=== PATIENT | male | born 1945 | race Caucasian/White ===

== ENCOUNTER 2020-06-01 02:38 | Observation (INO) | payer MEDICARE, BC ==
[2020-06-01 03:23] LABS: CHLORIDE,CL 93 mEq/L (98-106); SODIUM,NA 128 mEq/L (136-145)
--- NOTE | 2020-06-01 03:25 | EDM.PDOC ---
ED HPI GENERAL MEDICAL PROBLEM - General Chief Complaint: Respiratory Problem Stated Complaint: respiratory Time Seen by Provider: 06/01/20 03:05 Source of Information: Reports: Patient, Family History Limitations: Reports: Intoxication - History of Present Illness INITIAL COMMENTS - FREE TEXT/NARRATIVE: Prabhjot is a 74 yo male who presents to the ED with c/o fall and difficulty b reathing. Apparently [place]. He is intoxicated. At bar close, was helping take the garbage out. Reports he fell over and could not get back up. Bystander reports he was struggling to breathe and was unable to get up. Was eventually able to be assisted up. He reports prior to this he had been feeling fine. He denies any shortness of breath or cough. Does have rattle in chest, which reports he did not have earlier today. Has felt wheezy this evening, but didn't really notice it until he fell and someone pointed it out. He denies any fever, dizziness, chest pain, shortness of breath, cough, sinus congestion. Reports he has had both of his Covid vaccinations. Onset: Today, Sudden Associated Symptoms: Denies: Confusion, Chest Pain, Cough, cough w sputum, Diaphoresis, Fever/Chills, Headaches, Loss of Appetite, Malaise, Nausea/Vomiting, Rash, Seizure, Shortness of Breath, Syncope, Weakness - Related Data Allergies Allergy/AdvReac Type Severity Reaction Status Date / Time No Known Allergies Allergy Verified 06/01/20 02:39 Home Meds: Home Meds Aspirin [Halfprin] 81 mg PO DAILY 01/18/14 [History] Pantoprazole [ProTONIX] 40 mg PO DAILY 01/18/14 [History] Albuterol/Ipratropium [DuoNeb 3.0-0.5 MG/3 ML] 3 ml NEB QID PRN #30 neb 06/01/20 [Rx] Cholecalciferol (Vitamin D3) [Vitamin D3] 5,000 unit PO DAILY 06/01/20 [History] Cyanocobalamin (Vitamin B-12) [Vitamin B-12] 1,000 mcg PO DAILY 06/01/20 [History] Fenofibrate 160 mg PO DAILY 06/01/20 [History] Magnesium Oxide [Magnesium] 400 mg PO DAILY 06/01/20 [History] Metoprolol Succinate [Toprol XL 100mg] 100 mg PO DAILY 06/01/20 [History] Ubidecarenone [Coq-10] 100 mg PO DAILY 06/01/20 [History] amLODIPine [Norvasc] 5 mg PO DAILY 06/01/20 [History] levoFLOXacin [Levaquin] 500 mg PO DAILY 6 Days #6 tab 06/01/20 [Rx] predniSONE [Prednisone] 20 mg PO DAILY 6 Days #9 tablet 06/01/20 [Rx] Past Medical History Cardiovascular History: Reports: High Cholesterol, Hypertension Gastrointestinal History: Reports: GERD Endocrine/Metabolic History: Reports: Other (See Below) Other Endocrine/Metabolic History: reports being pre-diabetic - Past Surgical History Cardiovascular Surgical History: Reports: None GI Surgical History: Reports: None Endocrine Surgical History: Reports: None Social & Family History - Tobacco Use Tobacco Use Status *Q: Never Tobacco User - Alcohol Use Alcohol Use History: Yes Alcohol Use Frequency: Socially - Recreational Drug Use Recreational Drug Use: No - Living Situation & Occupation Living situation: Reports: Occupation: Employed (Self, [employer]orer) ED ROS GENERAL - Review of Systems Review Of Systems: Comprehensive ROS is negative, except as noted in HPI. ED EXAM, GENERAL - Physical Exam Exam: See Below Exam Limited By: Intoxication General Appearance: Alert, WD/WN, No Apparent Distress Eye Exam: Bilateral Eye: EOMI, Normal Fundi, Normal Inspection, PERRL Ears: Normal External Exam, Normal Canal, Hearing Grossly Normal, Normal TMs Nose: Normal Inspection, Normal Mucosa, No Blood Throat/Mouth: Normal Inspection, Normal Lips, Normal Teeth, Normal Gums, Normal Oropharynx, Normal Voice, No Airway Compromise Head: Atraumatic, Normocephalic Neck: Normal Inspection, Supple, Non-Tender, Full Range of Motion Respiratory/Chest: No Respiratory Distress, No Accessory Muscle Use, Chest Non- Tender, Rhonchi (throughout), Wheezing (expiratory wheezes throughout). No: Accessory Muscle Use, Retractions, Splinting Cardiovascular: Normal Peripheral Pulses, Regular Rate, Rhythm, No Edema, No Gallop, No JVD, No Murmur, No Rub GI/Abdominal: Normal Bowel Sounds, Soft, Non-Tender, No Organomegaly, No Distention, No Abnormal Bruit, No Mass Back Exam: Normal Inspection, Full Range of Motion, NT Extremities: Normal Inspection, Normal Range of Motion, Non-Tender, Normal Capillary Refill, No Pedal Edema Neurological: Alert, Oriented, CN II-XII Intact, Normal Cognition, Normal Gait, Normal Reflexes, No Motor/Sensory Deficits Psychiatric: Normal Affect, Normal Mood Skin Exam: Warm, Dry, Other (small abrasions to bilateral forehead, both < 2 mm in size) Lymphatic: No Adenopathy Course - Vital Signs Last Recorded V/S: Last Vital Signs Temp 98.1 F 06/01/20 07:41 Pulse 67 06/01/20 07:41 Resp 20 06/01/20 07:41 BP 121/74 06/01/20 07:41 Pulse Ox 94 L 06/01/20 07:41 - Orders/Labs/Meds Orders: Active Orders 24 hr Category Date Time Status CXR [Chest 2V] [CR] Stat Exams 06/01/20 02:49 Taken Labs: Laboratory Tests 06/01/20 06/01/20 Range/Units 02:50 03:12 WBC 6.3 (5.0-10.0) 10^3/uL RBC 5.91 (4.50-6.00) 10^6/uL Hgb 16.4 (14.0-18.0) g/dL Hct 48.4 (40.0-54.0) % MCV 81.9 L (82.0-94.0) fL MCH 27.7 (27.0-32.0) pg MCHC 33.9 (33.0-38.0) g/dL RDW Coeff of Juan Ramon 14.0 (11.0-15.0) % Plt Count 245 (150-400) 10^3/uL Neut % (Auto) 33.3 L (35-85) % Lymph % (Auto) 53.2 (10-55) % [place] % (Auto) 8.6 (0-16) % Eos % (Auto) 4.4 (0-5) % Baso % (Auto) 0.5 (0-3) % Neut # (Auto) 2.10 (1.80-7.00) 10^3/uL Lymph # (Auto) 3.36 (1.00-4.80) 10^3/uL [place] # (Auto) 0.54 (0.00-0.80) 10^3/uL Eos # (Auto) 0.28 (0.00-0.45) 10^3/uL Baso # (Auto) 0.03 10^3/uL Sodium 128 L (136-145) mEq/L Potassium 3.9 (3.5-5.0) mEq/L Chloride 93 L (98-106) mEq/L Carbon Dioxide 25 (21-32) mmol/L BUN 12 (7-18) mg/dL Creatinine 1.2 (0.7-1.3) mg/dL Est Cr Clr Drug Dosing 50.21 mL/min Estimated GFR (MDRD) 60 (>=60) mL/min Glucose 161 H (75-99) mg/dL Calcium 9.5 (8.4-10.1) mg/dL Total Bilirubin 0.5 (0.0-1.0) mg/dL AST 17 (15-37) U/L ALT 21 (12-78) U/L Alkaline Phosphatase 65 (46-116) U/L C-Reactive Protein < 0.2 L (0.2-0.8) mg/dL Total Protein 7.6 (6.4-8.2) g/dL Albumin 3.7 (3.4-5.0) g/dL Meds: Medications Discontinued Medications Generic Name Dose Route Start Last Admin Trade Name Freq PRN Reason Stop Dose Admin Acetaminophen 650 mg 06/01/20 04:20 Acetaminophen 325 Mg Tab PO Q4H PRN Pain (Mild 1-3)/fever Albuterol/Ipratropium 3 ml 06/01/20 04:20 06/01/20 07:27 Albuterol/Ipratropium 3.0-0.5 Mg/3 Ml Neb Soln NEB 3 ml QID EVA Administration Albuterol/Ipratropium 3 ml 06/01/20 04:22 06/01/20 04:37 Albuterol/Ipratropium 3.0-0.5 Mg/3 Ml Neb Soln NEB 06/01/20 04:23 3 ml ONETIME ONE Administration Aspirin 81 mg 06/01/20 08:00 06/01/20 07:27 Aspirin 81 Mg Tab.Ec PO 81 mg DAILY EVA Administration Enoxaparin Sodium 40 mg 06/01/20 09:00 06/01/20 09:39 Enoxaparin 40 Mg/0.4 Ml Syringe SUBCUT 40 mg Q24H EVA Administration Fenofibrate 160 mg 06/01/20 08:00 Fenofibrate 160 Mg Tab PO DAILY EVA Sodium Chloride 1,000 mls @ 125 mls/hr 06/01/20 04:20 06/01/20 04:41 Normal Saline IV 125 mls/hr ASDIRECTED EVA Administration Levofloxacin/Dextrose 500 mg/ 100 mls @ 100 mls/hr 06/01/20 04:00 06/01/20 04:46 Premix IV 100 mls/hr Q24H EVA Administration Methylprednisolone Sodium Succinate 125 mg 06/01/20 04:20 06/01/20 04:39 Methylprednisolone Sodium Succinate 125 Mg/2 Ml Sdv IVPUSH 125 mg Q24H EVA Administration Non-Formulary Medication 5 mg 06/01/20 08:00 Amlodipine [Norvasc] PO DAILY [facility] Non-Formulary Medication 1,000 mcg 06/01/20 08:00 Cyanocobalamin (Vitamin B-12) [Vitamin B-12] PO DAILY [facility] Non-Formulary Medication 400 mg 06/01/20 08:00 Magnesium Oxide [Magnesium] PO DAILY [facility] Ondansetron HCl 4 mg 06/01/20 04:20 Ondansetron 4 Mg/2 Ml Sdv IV Q6H PRN Nausea/Vomiting Departure - Departure Time of Disposition: 04:20 Disposition: Refer to Observation Condition: Fair Clinical Impression: Pneumonitis, Hyponatremia - Discharge Information *PRESCRIPTION DRUG MONITORING PROGRAM REVIEWED*: Not Applicable *COPY OF PRESCRIPTION DRUG MONITORING REPORT IN PATIENT CURTIS: Not Applicable Sepsis Event Note (ED) - Evaluation Sepsis Screening Result: No Definite Risk - Focused Exam Vital Signs: Vital Signs Temp Pulse Resp BP Pulse Ox 06/01/20 03:12 93 L 06/01/20 02:40 96.4 F L 60 16 110/63 93 L - Problem List & Annotations (1) Pneumonitis SNOMED Code(s): 389765503 Code(s): J18.9 - PNEUMONIA, UNSPECIFIED ORGANISM Status: Acute (2) Hyponatremia SNOMED Code(s): 46986896 Code(s): E87.1 - HYPO-OSMOLALITY AND HYPONATREMIA Status: Acute - Problem List Review Problem List Initiated/Reviewed/Updated: Yes - My Orders Last 24 Hours: My Active Orders 06/01/20 02:49 CXR [Chest 2V] [CR] Stat - Assessment/Plan Admission H&P: Please use this note as an admission H&P Last 24 Hours: My Active Orders 06/01/20 02:49 CXR [Chest 2V] [CR] Stat Assessment:: Pneumonitis Hyponatremia Plan: Patient with adventitious lung sounds throughout. O2 sat 93% on RA. CXR appears to have atypical pneumonitis. Declined covid testing. Labs all stable except Na 128. Will admit to observation with cardiac monitoring. Will start IVF throughout the night due to low sodium and dehydration. Patient has been drinking ETOH this evening and appears dehydrated. Start nebs, IV antibiotics and steroids. Recheck labs in am. Patient transferred to floor in satisfactory condition.
[2020-06-01] MEDS ORDERED: Levofloxacin/Dextrose 5%-Water 500 MG in Premix Bag 1 BAG IV SCH (04:00)
[2020-06-01] MEDS ORDERED: Sodium Chloride 0.9% 1,000 ML IV SCH (04:20)
[2020-06-01] MEDS ORDERED: Ondansetron 4 MG/2 ML SDV IV PRN (04:20)
[2020-06-01] MEDS ORDERED: Acetaminophen 325 MG Tab PO PRN (04:20)
[2020-06-01] MEDS ORDERED: methylPREDNISolone Sodium Succinate 125 MG/2 ML SDV IVPUSH SCH (04:20)
[2020-06-01] MEDS ORDERED: Albuterol/Ipratropium 3.0-0.5 MG/3 ML Neb Soln NEB ONE (04:22)
[2020-06-01] MEDS: Albuterol/Ipratropium 3.0-0.5 MG/3 ML Neb Soln NEB SCH ×2 (04:38→07:27)
[2020-06-01] MEDS ORDERED: Fenofibrate 160 MG Tab PO SCH (08:00)
[2020-06-01] MEDS ORDERED: Non-Formulary Medication 1 Each (Magnesium Oxide [Magnesium] 400 MG Tablet) PO SCH (08:00)
[2020-06-01] MEDS ORDERED: Non-Formulary Medication 1 Each (Amlodipine [Norvasc] 5 MG Tablet) PO SCH (08:00)
[2020-06-01] MEDS ORDERED: Aspirin 81 MG Tab.EC PO SCH (08:00)
[2020-06-01] MEDS ORDERED: Enoxaparin 40 MG/0.4 ML Syringe SUBCUT SCH (09:00)
[2020-06-01 09:24] LABS: CHLORIDE,CL 96 mEq/L (98-106); SODIUM,NA 131 mEq/L (136-145)
[2020-06-01 09:53] LABS: CORONAVIRUS COVID-19 NAA NEGATIVE (NEGATIVE)
--- NOTE | 2020-06-01 10:17 | PCM.DCSUM1 ---
Discharge Summary - Hospital Course Free Text/Narrative:: Prabhjot is a pleasant 74 year old male who was admitted last night from the ED for pneumonitis. He had reportedly fallen down, while intoxicated, and was too weak to get up. Bystanders were worried about his breathing as there was audible wheezing and rhonchi. He presented to the ED. O2 sats upon arrival 93%. Patient without any known respiratory issues. Lab work was significant for Na of 128. Chest xray revealed interstitial edema vs. atypical pneumonitis. Patient was negative for Covid and influenza. He was admitted, started on antibiotics, steroids, and IVF. On day of discharge, patient had much improvement in breathing. Lung sounds much improved. Na improved to 131 after 1 L IVF. Patient reported he was feeling well. O2 sat 94% on RA. He was up ambulating without difficulty. He did not verbalize any concerns. He will be discharged on on remaining course of Levaquin and prednisone. Will also send home Duonebs for patient to use as needed. He is advised to follow up with PCP next week for recheck. Will get repeat lab work at that time as well. - Discharge Data Discharge Date: 06/01/20 Discharge Disposition: Home, Self-Care 01 Condition: Good - Referral to Home Health Primary Care Physician: Kota Maldonado PA-C - Discharge Diagnosis/Problem(s) (1) Pneumonitis SNOMED Code(s): 389123110 ICD Code: J18.9 - PNEUMONIA, UNSPECIFIED ORGANISM Status: Acute (2) Hyponatremia SNOMED Code(s): 28981116 ICD Code: E87.1 - HYPO-OSMOLALITY AND HYPONATREMIA Status: Acute - Patient Instructions Diet: Usual Diet as Tolerated Activity: As Tolerated, Cough & Deep Breathe Notify Provider of: Fever, Increased Pain - Discharge Plan *PRESCRIPTION DRUG MONITORING PROGRAM REVIEWED*: Not Applicable *COPY OF PRESCRIPTION DRUG MONITORING REPORT IN PATIENT CURTIS: Not Applicable Prescriptions/Med Rec: Albuterol/Ipratropium [DuoNeb 3.0-0.5 MG/3 ML] 3 ml NEB QID PRN #30 neb PRN Reason: pneumonia levoFLOXacin [Levaquin] 500 mg PO DAILY 6 Days #6 tab predniSONE [Prednisone] 20 mg PO DAILY 6 Days #9 tablet Home Medications: Home Meds Aspirin [Halfprin] 81 mg PO DAILY 01/18/14 [History] Pantoprazole [ProTONIX] 40 mg PO DAILY 01/18/14 [History] Albuterol/Ipratropium [DuoNeb 3.0-0.5 MG/3 ML] 3 ml NEB QID PRN #30 neb 06/01/20 [Rx] Cholecalciferol (Vitamin D3) [Vitamin D3] 5,000 unit PO DAILY 06/01/20 [History] Cyanocobalamin (Vitamin B-12) [Vitamin B-12] 1,000 mcg PO DAILY 06/01/20 [History] Fenofibrate 160 mg PO DAILY 06/01/20 [History] Magnesium Oxide [Magnesium] 400 mg PO DAILY 06/01/20 [History] Metoprolol Succinate [Toprol XL 100mg] 100 mg PO DAILY 06/01/20 [History] Ubidecarenone [Coq-10] 100 mg PO DAILY 06/01/20 [History] amLODIPine [Norvasc] 5 mg PO DAILY 06/01/20 [History] levoFLOXacin [Levaquin] 500 mg PO DAILY 6 Days #6 tab 06/01/20 [Rx] predniSONE [Prednisone] 20 mg PO DAILY 6 Days #9 tablet 06/01/20 [Rx] Oxygen Therapy Mode: Room Air Patient Handouts: Pneumonitis Forms: ED Department Discharge Referrals: Kota Maldonado PA-C [Primary Care Provider] - - Discharge Summary/Plan Comment DC Time >30 min.: No - General Info Date of Service: 06/01/20 Admission Dx/Problem (Free Text: Pneumonitis Hyponatremia Subjective Update: Patient reports he is feeling well this morning. Does not have any complaints. He is anxious to go home. Functional Status: Reports: Pain Controlled, Tolerating Diet, Ambulating, Urinating. Denies: New Symptoms - Review of Systems General: Reports: No Symptoms HEENT: Reports: No Symptoms Pulmonary: Reports: Cough. Denies: Shortness of Breath, Pleuritic Chest Pain, Sputum, Hemoptysis, Wheezing Cardiovascular: Reports: No Symptoms Gastrointestinal: Reports: No Symptoms Genitourinary: Reports: No Symptoms Musculoskeletal: Reports: No Symptoms Skin: Reports: No Symptoms Neurological: Reports: No Symptoms Psychiatric: Reports: No Symptoms - Patient Data Vitals - Most Recent: Last Vital Signs Temp 98.1 F 06/01/20 07:41 Pulse 67 06/01/20 07:41 Resp 20 06/01/20 07:41 BP 121/74 06/01/20 07:41 Pulse Ox 94 L 06/01/20 07:41 Weight - Most Recent: 224 lb Lab Results - Last 24 hrs: Laboratory Results - last 24 hr 06/01/20 06/01/20 06/01/20 Range/Units 02:50 03:12 09:11 WBC 6.3 2.8 L (5.0-10.0) 10^3/uL RBC 5.91 5.62 (4.50-6.00) 10^6/uL Hgb 16.4 15.5 (14.0-18.0) g/dL Hct 48.4 45.5 (40.0-54.0) % MCV 81.9 L 81.0 L (82.0-94.0) fL MCH 27.7 27.6 (27.0-32.0) pg MCHC 33.9 34.1 (33.0-38.0) g/dL RDW Coeff of Juan Ramon 14.0 13.7 (11.0-15.0) % Plt Count 245 211 (150-400) 10^3/uL Neut % (Auto) 33.3 L 75.3 (35-85) % Lymph % (Auto) 53.2 22.9 (10-55) % [place] % (Auto) 8.6 1.4 (0-16) % Eos % (Auto) 4.4 0 (0-5) % Baso % (Auto) 0.5 0.4 (0-3) % Neut # (Auto) 2.10 2.10 (1.80-7.00) 10^3/uL Lymph # (Auto) 3.36 0.64 L (1.00-4.80) 10^3/uL [place] # (Auto) 0.54 0.04 (0.00-0.80) 10^3/uL Eos # (Auto) 0.28 0.00 (0.00-0.45) 10^3/uL Baso # (Auto) 0.03 0.01 10^3/uL Sodium 128 L (136-145) mEq/L Potassium 3.9 (3.5-5.0) mEq/L Chloride 93 L (98-106) mEq/L Carbon Dioxide 25 (21-32) mmol/L BUN 12 (7-18) mg/dL Creatinine 1.2 (0.7-1.3) mg/dL Est Cr Clr Drug Dosing 50.21 mL/min Estimated GFR (MDRD) 60 (>=60) mL/min Glucose 161 H (75-99) mg/dL Calcium 9.5 (8.4-10.1) mg/dL Magnesium (1.8-2.4) mg/dL Total Bilirubin 0.5 (0.0-1.0) mg/dL AST 17 (15-37) U/L ALT 21 (12-78) U/L Alkaline Phosphatase 65 (46-116) U/L C-Reactive Protein < 0.2 L (0.2-0.8) mg/dL NT-Pro-B Natriuret Pep (0-1000) pg/mL Total Protein 7.6 (6.4-8.2) g/dL Albumin 3.7 (3.4-5.0) g/dL Influenza Type A RNA (NEGATIVE) Influenza Type B RNA (NEGATIVE) SARS-CoV-2 RNA ([place]) (NEGATIVE) 06/01/20 06/01/20 06/01/20 Range/Units 09:11 09:11 09:11 WBC (5.0-10.0) 10^3/uL RBC (4.50-6.00) 10^6/uL Hgb (14.0-18.0) g/dL Hct (40.0-54.0) % MCV (82.0-94.0) fL MCH (27.0-32.0) pg MCHC (33.0-38.0) g/dL RDW Coeff of Juan Ramon (11.0-15.0) % Plt Count (150-400) 10^3/uL Neut % (Auto) (35-85) % Lymph % (Auto) (10-55) % [place] % (Auto) (0-16) % Eos % (Auto) (0-5) % Baso % (Auto) (0-3) % Neut # (Auto) (1.80-7.00) 10^3/uL Lymph # (Auto) (1.00-4.80) 10^3/uL [place] # (Auto) (0.00-0.80) 10^3/uL Eos # (Auto) (0.00-0.45) 10^3/uL Baso # (Auto) 10^3/uL Sodium 131 L (136-145) mEq/L Potassium 3.9 (3.5-5.0) mEq/L Chloride 96 L (98-106) mEq/L Carbon Dioxide 23 (21-32) mmol/L BUN 12 (7-18) mg/dL Creatinine 1.1 (0.7-1.3) mg/dL Est Cr Clr Drug Dosing 54.78 mL/min Estimated GFR (MDRD) > 60 (>=60) mL/min Glucose 206 H D (75-99) mg/dL Calcium 9.4 (8.4-10.1) mg/dL Magnesium 1.8 (1.8-2.4) mg/dL Total Bilirubin (0.0-1.0) mg/dL AST (15-37) U/L ALT (12-78) U/L Alkaline Phosphatase (46-116) U/L C-Reactive Protein < 0.2 L (0.2-0.8) mg/dL NT-Pro-B Natriuret Pep 357 (0-1000) pg/mL Total Protein (6.4-8.2) g/dL Albumin (3.4-5.0) g/dL Influenza Type A RNA Negative (NEGATIVE) Influenza Type B RNA Negative (NEGATIVE) SARS-CoV-2 RNA ([place]) Negative (NEGATIVE) Med Orders - Current: Current Medications Acetaminophen (Acetaminophen 325 Mg Tab) 650 mg PO Q4H PRN PRN Reason: Pain (Mild 1-3)/fever Albuterol/Ipratropium (Albuterol/Ipratropium 3.0-0.5 Mg/3 Ml Neb Soln) 3 ml NEB QID [facility] Last Admin: 06/01/20 07:27 Dose: 3 ml Documented by: Aspirin (Aspirin 81 Mg Tab.Ec) 81 mg PO DAILY [facility] Last Admin: 06/01/20 07:27 Dose: 81 mg Documented by: Enoxaparin Sodium (Enoxaparin 40 Mg/0.4 Ml Syringe) 40 mg SUBCUT Q24H [facility] Last Admin: 06/01/20 09:39 Dose: 40 mg Documented by: Fenofibrate (Fenofibrate 160 Mg Tab) 160 mg PO DAILY [facility] Sodium Chloride (Normal Saline) 1,000 mls @ 125 mls/hr IV ASDIRECTED [facility] Last Admin: 06/01/20 04:41 Dose: 125 mls/hr Documented by: Levofloxacin/Dextrose 500 mg/ (Premix) 100 mls @ 100 mls/hr IV Q24H [facility] Last Admin: 06/01/20 04:46 Dose: 100 mls/hr Documented by: Methylprednisolone Sodium Succinate (Methylprednisolone Sodium Succinate 125 Mg/2 Ml Sdv) 125 mg IVPUSH Q24H [facility] Last Admin: 06/01/20 04:39 Dose: 125 mg Documented by: Non-Formulary Medication (Amlodipine [Norvasc]) 5 mg PO DAILY [facility] Non-Formulary Medication (Cyanocobalamin (Vitamin B-12) [Vitamin B-12]) 1,000 mcg PO DAILY [facility] Non-Formulary Medication (Magnesium Oxide [Magnesium]) 400 mg PO DAILY [facility] Ondansetron HCl (Ondansetron 4 Mg/2 Ml Sdv) 4 mg IV Q6H PRN PRN Reason: Nausea/Vomiting Discontinued Medications Albuterol/Ipratropium (Albuterol/Ipratropium 3.0-0.5 Mg/3 Ml Neb Soln) 3 ml NEB ONETIME ONE Stop: 06/01/20 04:23 Last Admin: 06/01/20 04:37 Dose: 3 ml Documented by: - Exam Quality Assessment: Denies: Supplemental Oxygen General: Reports: Alert, Oriented, No Acute Distress Neck: Reports: Supple Lungs: Reports: Normal Respiratory Effort, Wheezing (much improved). Denies: Crackles, Rhonchi Cardiovascular: Reports: Regular Rate, Regular Rhythm GI/Abdominal Exam: Normal Bowel Sounds, Soft, Non-Tender, No Organomegaly, No Distention, No Abnormal Bruit, No Mass, Pelvis Stable Back Exam: Reports: Normal Inspection, Full Range of Motion Extremities: Normal Inspection, Normal Range of Motion, Non-Tender, No Pedal Edema, Normal Capillary Refill Skin: Reports: Warm, Dry, Intact Neurological: Reports: No New Focal Deficit Psy/Mental Status: Reports: Alert, Normal Affect, Normal Mood
== END 2020-06-01 11:10 | disposition home or self-care (01) ==
LOC: CC.ED 02:38 → CC.MS 03:33 → UNDOADMOB 03:45 → CC.MS 03:45
PROVIDERS: ADMIT Nurse Practitioner Family; ATTEND Family Medicine
DX: J18.9 Pneumonia, unspecified organism (principal); E87.1 Hypo-osmolality and hyponatremia; E78.00 Pure hypercholesterolemia, unspecified; I10 Essential (primary) hypertension; R73.03 Prediabetes; Z20.822 Contact with and (suspected) exposure to COVID-19; Z79.82 Long term (current) use of aspirin; Z79.899 Other long term (current) drug therapy
CPT/HCPCS: 0240U; 36415; 71046; 80048; 80053; 83735; 83880; 85025; 86140; 93005; 93010; 94640; 96365; 96372; 96375; 99236; 99285-25; A9270-GY; G0378; J1650; J1956; J2930; J7030; J7620-GY

== ENCOUNTER 2021-08-09 09:08 | Observation (INO) | payer MEDICARE, BC ==
[2021-08-09] MEDS ORDERED: Sodium Chloride 0.9% 10 ML Syringe FLUSH PRN ×2 (09:30→16:33)
[2021-08-09] MEDS ORDERED: Morphine 2 MG/ML SYRINGE IVPUSH ONE (09:31)
[2021-08-09] MEDS ORDERED: Ondansetron 4 MG/2 ML SDV IVPUSH ONE (09:31)
[2021-08-09] MEDS ORDERED: Aspirin 81 MG Tab.Chew PO ONE (09:33)
[2021-08-09 09:56] LABS: CHLORIDE,CL 104 mEq/L (98-106); SODIUM,NA 137 mEq/L (136-145)
[2021-08-09 10:02] LABS: PTT,PARTIAL THROMBOPLSTIN TIME 25.4 SEC (23.2-32.3)
[2021-08-09 10:17] LABS: CORONAVIRUS COVID-19 NAA NEGATIVE (NEGATIVE)
[2021-08-09 10:17] LABS: ESTIMATED GFR > 60 mL/min (>=60)
[2021-08-09] MEDS ORDERED: Iopamidol 755 Mg/ML 100 ML Bottle IVPUSH ONE (11:00)
[2021-08-09] MEDS ORDERED: Furosemide 40 MG/4 ML VIAL IVPUSH SCH (14:00)
[2021-08-09] MEDS ORDERED: Acetaminophen 325 MG Tab PO PRN (16:33)
[2021-08-09] MEDS ORDERED: Metoprolol Tartrate 25 MG Tab PO ONE (17:21)
[2021-08-09] MEDS ORDERED: Magnesium Sulfate/Water 2 GM in Premix Bag 1 BAG IV ONE (17:35)
[2021-08-09] MEDS ORDERED: Potassium Chloride 10% 20 MEQ/15 ML Soln 15 ML UD Cup PO ONE (17:37)
[2021-08-10] MEDS ORDERED: Non-Formulary Medication 1 Each (Fenofibrate [Fenofibrate] 160 MG Tablet) PO SCH (08:00)
[2021-08-10] MEDS ORDERED: Metoprolol Succinate 100 MG Tab.ER PO SCH (08:00)
[2021-08-10] MEDS ORDERED: Non-Formulary Medication 1 Each (Amlodipine [Norvasc] 5 MG Tablet) PO SCH (08:00)
[2021-08-10] MEDS ORDERED: Non-Formulary Medication 1 Each (Magnesium Oxide [Magnesium] 400 MG Tablet) PO SCH (08:00)
[2021-08-10] MEDS ORDERED: Enoxaparin 40 MG/0.4 ML Syringe SUBCUT SCH ×2 (08:00→20:00)
[2021-08-10] MEDS ORDERED: Tamsulosin 0.4 MG Cap.ER PO SCH (08:00)
[2021-08-10] MEDS ORDERED: Pantoprazole 40 MG Tab.CR PO SCH (08:00)
== END 2021-08-10 12:24 | disposition home or self-care (01) ==
LOC: CC.ED 09:08 → CC.MS 16:33
PROVIDERS: ADMIT Nurse Practitioner Family; ATTEND Nurse Practitioner Family
DX: I50.9 Heart failure, unspecified (principal); R93.89 Abnormal findings on diagnostic imaging of other specified body structures; I48.91 Unspecified atrial fibrillation; Z20.822 Contact with and (suspected) exposure to COVID-19; Z79.899 Other long term (current) drug therapy
CPT/HCPCS: 0240U; 36415; 71046; 71275; 80048; 80053; 82550; 83605; 83615; 83690; 83735; 83880; 84443; 84484; 85025; 85379; 85610; 85730; 93005; 93010; 96365; 96366; 96374; 96375; 99217; 99220; 99285-25; A9270-GY; G0378; J1940; J2270; J2405; J3475